=== PATIENT | female | born 1935 | race Caucasian/White ===

== ENCOUNTER 2016-05-28 19:28 | Emergency (ER) | payer MEDICAID, OTHER ==
[~2016-05-28] VITALS: Ht 157.5 cm; Wt 59.0 kg
[~2016-05-28 19:28] MED LIST: BENA20TA3 PO; BENAZEPRIL; GABAPENTIN; GEMFIBROZIL; INSULIN; METOPROLOL; NITROFURANTOIN; OMEPRAZOLE; ONDA4TAB5 PO; VENLAFAXINE; [UNRECOGNIZED DRUG - OTHER]; [UNRECOGNIZED DRUG - OTHER]
[2016-05-28 20:44] LABS: BASOPHILS % 0.7 % (0.0-2.0); EOSINOPHILS % 1.3 % (0.0-5.0); HEMATOCRIT. 34.9 % (36.0-48.0); HEMOGLOBIN. 11.6 g/dL (12.0-16.0); LYMPHOCYTES % 24.2 % (20.0-50.0); MEAN CORPUSCULAR HEMOGLOBIN 28.8 pg (28.0-32.0); MEAN CORPUSCULAR HGB CONC 33.4 g/dL (31.0-37.0); MEAN CORPUSCULAR VOLUME 86.2 fL (81.0-99.0); MEAN PLATELET VOLUME 7.5 fl (7.4-10.4); MONOCYTES % 11.3 % (2.0-8.0); NEUTROPHILS % 62.5 % (40.0-76.0); PLATELET 255 x1000/uL (130-400); RED BLOOD CELL COUNT 4.05 mill/uL (4.2-5.4); RED CELL DISTRIBUTION WIDTH 14.4 % (11.6-14.6); WHITE BLOOD COUNT 7.5 x1000/uL (4.5-11.0)
[2016-05-28 20:48] LABS: INR 1.1; PROTHROMBIN TIME 11.1 sec
[2016-05-28 20:53] LABS: ANION GAP 13; CARBON DIOXIDE 27 mEq/L (21-32); CHLORIDE 101 mEq/L (98-107); INDEX HEMOLYSI 1 (1-3); INDEX ICTERIC 1 (1-4); INDEX LIPEMIC 1 (1-3); UREA NITROGEN BLOOD 22 mg/dL (7-21); eGFR > 60 mL/min (>60)
[2016-05-28 20:55] LABS: NT PRO B-TYPE NATRIURETIC PEP 500 pg/mL (5-125); TROPONIN I < 0.02 ng/mL (0.00-0.04)
[2016-05-28] MEDS ORDERED: SODIUM CHLORIDE 0.9% 1,000 ML IV ONE (21:13)
[2016-05-28] MEDS ORDERED: ONDANSETRON HCL 4MG/2ML VIAL IV STA (21:13)
[2016-05-29 11:53] VITALS: BP 140/76
== END 2016-05-29 12:14 | disposition home or self-care (01) ==
LOC: ER 19:37
DX: R53.81 Other malaise (principal); R53.83 Other fatigue; Z88.6 Allergy status to analgesic agent; Z88.8 Allergy status to other drugs, medicaments and biological substances; Z79.899 Other long term (current) drug therapy; Z79.4 Long term (current) use of insulin; E11.9 Type 2 diabetes mellitus without complications; I10 Essential (primary) hypertension; R11.2 Nausea with vomiting, unspecified
CPT/HCPCS: 36415; 71010; 80048; 83690; 83880; 84484; 85025; 85610; 93005; 96361; 96374; 99285; J2405; J7030; Z7610